=== PATIENT | female | born 1985 | race Two or more races ===

== ENCOUNTER 2017-03-30 19:03 | Emergency (ER) | payer OTHER ==
[~2017-03-30] VITALS: Ht 165.1 cm; Wt 86.0 kg
[2017-03-30] MEDS ORDERED: CALCIUM CARBONATE 500MG TABLET CHEW PO ONE (20:30)
[2017-03-30 20:41] LABS: CHLORIDE 107 mEq/L (98-107)
[2017-03-30 20:42] LABS: BASOPHILS % 0.5 % (0.0-2.0); HEMATOCRIT. 35.7 % (36.0-48.0); HEMOGLOBIN. 11.7 g/dL (12.0-16.0); LYMPHOCYTES % 37.5 % (20.0-50.0); MEAN CORPUSCULAR HEMOGLOBIN 28.2 pg (28.0-32.0); MEAN CORPUSCULAR VOLUME 86.3 fL (81.0-99.0); MEAN PLATELET VOLUME 7.9 fl (7.4-10.4); MONOCYTES % 8.1 % (2.0-8.0); NEUTROPHILS % 52.9 % (40.0-76.0); PLATELET 372 x1000/uL (130-400); RED BLOOD CELL COUNT 4.13 mill/uL (4.2-5.4); RED CELL DISTRIBUTION WIDTH 17.6 % (11.6-14.6)
[2017-03-30 20:46] LABS: CARBON DIOXIDE 23 mEq/L (21-32)
[2017-03-30] MEDS ORDERED: PANTOT AC/MIN OIL/PET HY-PHL OINT 52.5GM (AQUAPHOR) TOP ONE (21:15)
[2017-03-30 22:41] VITALS: BP 103/59
== END 2017-03-30 22:42 | disposition home or self-care (01) ==
LOC: ER 19:39
DX: T65.891A Toxic effect of other specified substances, accidental (unintentional), initial encounter (principal); T23.551A Corrosion of first degree of right palm, initial encounter; T23.552A Corrosion of first degree of left palm, initial encounter; Y93.89 Activity, other specified; Y92.89 Other specified places as the place of occurrence of the external cause
CPT/HCPCS: 36415; 80053; 82330; 85025; 99284